=== PATIENT | male | born 1955 ===

== ENCOUNTER 2020-11-12 10:39 | Outpatient (CLI) | payer OTHER ==
[~2020-11-12 10:39] MED LIST: CLARIT PO; NEXIUM
== END 2020-11-12 11:53 | disposition home or self-care (01) ==
LOC: LAB 10:39
PROVIDERS: ATTEND Orthopaedic Surgery
DX: U07.1 COVID-19 (principal); D68.8 Other specified coagulation defects; I10 Essential (primary) hypertension

== ENCOUNTER 2020-11-17 06:51 | Day surgery (SDC) | payer OTHER | END 2020-11-17 14:45 | disposition home or self-care (01) | LOC: CIR.AMB 06:51 → EDSEX 11:30 → CIR.AMB 14:45 | PROVIDERS: ATTEND Orthopaedic Surgery | DX: M75.122 Complete rotator cuff tear or rupture of left shoulder, not specified as traumatic (principal); M75.22 Bicipital tendinitis, left shoulder; Z20.822 Contact with and (suspected) exposure to COVID-19 ==